=== PATIENT | female | born 1955 | race Caucasian/White ===

== ENCOUNTER 2017-02-10 00:17 | Emergency (ER) | payer OTHER ==
[~2017-02-10] VITALS: Ht 157.5 cm; Wt 81.6 kg
[~2017-02-10 00:17] MED LIST: ALLEGRA D 12 HO1 TER PO; ASPIRIN CHILDRE81 MG PO; ATORVASTATIN CA40 MG PO; BROMFED DM COU118 ML PO; CARDIZEM CD180 MG PO; CARTIA XT240 MG PO; CELEXA10 MG PO; CLOPIDOGREL75 M2 PO; FLAGYL500 M1 PO; LODRANE 24D 121 C24 PO; MEDROL 4MG. DOSE4 MG PO; NITROGLYCERIN0.4 MG SL; OMNICEF 300 MG300 MG PO; PHENERGAN VC +120 ML PO; PREDNISONE 20MG20 MG PO; TAMIFLU 75MG CA75 MG PO; TESSALON PERLE100 MG PO; TRAMADOL 50MG T50 MG PO; VENTOLIN H0.09 MG/AC IH; VIBRAMYCIN 100100 MG PO; ZITHROMAX 250M250 MG PO; ZITHROMAX Z PA250 MG PO; ZITHROMAX Z-PA250 M2 PO; ZOFRAN4 MG PO
--- NOTE | 2017-02-10 00:45 | Emergency Room Report ---
History of Present Illness Time Seen by MD Wells Presenting Problem in Triage Pt arrived:Walked Presenting Problem:REPORTS SHE WAS SEEN IN THE [facility] ON THE 2ND AND DIAGNOSED WITH AN URI. WAS GIVEN STERIODS AND ABX, BUT REPORTS SHE IS NOT BETTER, SHE IS WORSE. REPORTS COUGH, CONGESTION, SOA AT TIMES Onset of symptoms date/time:/ or onset unknown for:MEDICAL HX UNKNOWN Treatment Prior to Arrival: SEEN IN [facility] ABOUT 2 WEEKS AGO [employer] Provided by: OTHER Sepsis Risk Assessment: Temp: 98.3 B/P: 118/90 MAP: 99 Pulse: 97 Resp: 18 Recent fever? N Clinical Suspician of Infection? N Mental Status: 1 - Regular (Normal Baseline) Sepsis Risk:Low Sepsis Risk Have you (or family members/close friends) recently traveled outside the [place]? N If Yes, where/when: Have you had exposure to infectious disease within the past month? N TB? Other? Specify: Comment The patient complains of a productive cough for over a month. Initially was yellow sputum, now starting to clear. She has wheezing and trouble breathing. No fever. She does have rhinorrhea and sore throat. She was seen at the urgent treatment center on 01/27/17. Treated with a Z-Heath and a steroid shot. No follow- up since then. No history of asthma or chronic obstructive pulmonary disease. She is a smoker. ALLERGIES Coded Allergies: Penicillins (Mild, 09/11/16) Uncoded Allergies: BEE STINGS (04/07/11) Home Medications Active Scripts NITROGLYCERIN (Nitrostat) 0.4 MG SL [id number] PRN CHEST PAIN #25 TABLET Ref 1 Prov: 10/30/14 Reported Medications CITALOPRAM HYDROBROMIDE (Citalopram HBr) 10 MG PO DAILY ASPIRIN (Aspirin) 81 MG PO DAILY Fexofenadine Hcl/Pse Hcl (Grace D 12 Hour 60 Mg-120 Mg) 1 TER PO BID CLOPIDOGREL BISULFATE (Clopidogrel) 75 MG PO DAILY #90 DILTIAZEM HCL (Cartia Xt) 240 MG PO DAILY #90 Atorvastatin Calcium 40 MG PO DAILY #90 History Medical History General CAD? No Angina: No AR: Yes Hypertension? Yes Hyperlipidemia? Yes CHF? No DVT? No PE? No COPD? No Asthma? No Anemia? No GERD? No Gastric ulcers? No GI Bleed? No Hernia? No Thyroid Problems? No Hypothyroidism? No CVA? No Seizures? No Diabetes? No Renal Insuffiency? No End Stage Renal Disease? No UTI? No Stones? No BPH? No GB Disease: No Nephritic Syndrome? No Asplenia? No Hepatitis? No Sickle Cell Disease? No Arthritis? No Migraines? No Cataracts? No Glaucoma? No MRSA? No HIV? No TB? No Anxiety? No Depression? No Cancer? No Immunization Hx DT/Tetanus 1-4 Years Ago Flu NEVER Pneumonia 10-30-14 Surgical Hx Previous Surgery?Y ANGIOPLASTY CARDIAC STENT Family History Family Hx Diabetes Yes CAD Yes Hypertension No Hyperlipidemia Yes Cancer Yes TB Yes Social History Smoking Hx Smoker: Current Every Day Smoker Tobacco: Yes Type Cigarettes Packs/day 1 1/2 - 2 Packs Alcohol Alcohol: No Additionial History Additional History UTC on 01/27/17. Dx acute bronchitis. Tx with IM decadron, Zpak. Review of Systems All Other Systems Reviewed and Negative Constitutional denies fever ENT nose discharge, throat pain. Respiratory cough, shortness of breath, wheezing Physical Exam Vital Signs Vital Signs Date Time Temp Pulse Resp B/P Pulse O2 O2 Flow FiO2 Ox Delivery Rate 02/10 012 98.3 97 18 118/90 96 02/10 0125 98.3 97 18 118/90 96 02/10 0021 98.3 97 18 118/90 96 General Appearance no apparent distress Eye Exam - bilateral eye normal exam, bilateral eye PERRL, bilateral eye EOMI Ear, Nose, Throat tympanic membranes and pharynx normal Neck normal inspection, non-tender, supple, full range of motion Respiratory Status Yes: trachea midline, chest symmetrical, productive cough. No: respiratory distress. Lung Sounds bilateral: rhonchi, wheezing. Cardiovascular normal exam, regular rate/rhythm, no peripheral edema, no gallop, no JVD, no murmur, no rub, normal peripheral pulses Gastrointestinal normal bowel sounds, normal exam, non tender, soft, no organomegaly Extremities non-tender, normal range of motion, normal inspection Neurologic alert, normal exam, oriented x 3 Mental status normal mood/affect Skin intact, normal color, warm/dry Medical Decision Making LABS/Meds/Orders Pt receiving controlled substance in ED? No Results/Orders Laboratory Tests 02/10/17 0030: Lactic Acid 1.8 02/10/17 0030: Sodium 140, Potassium 3.7, Chloride 103, Carbon Dioxide 26, BUN 9, Creatinine 0.8, Estimated Creat Clear 96, Estimated GFR (MDRD) 73, Glucose 145 H, Calcium 8.9, Total Bilirubin 0.3, AST 11 L, ALT 30, Alkaline Phosphatase 213 H, Total Protein 6.9, Albumin 3.7, Globulin 3.2, Albumin/Globulin Ratio 1.2, WBC 14.9 H, RBC 5.18, Hgb 15.4, Hct 45.3, MCV 87.3, RDW 13.1, Plt Count 277, MPV 7.8, Gran % 70.7, Gran # 10.5 H, Lymphocytes % 21.7, Monocytes % 5.4, Eosinophils % 1.7, Basophils % 0.5, Lymphocytes # 3.2, Monocytes # 0.8, Eosinophils # 0.3, Basophils # 0.1, PUBS MCHC 34.0, MCH 29.6 Current Medication Orders Sig/Mario Start time Last Medication Dose Route Stop Time Status Admin Levofloxacin 0 .STK-MED ONE 02/10 010 DC .ROUTE Benzonatate 0 .STK-MED ONE 02/10 010 DC PO Benzonatate 200 MG ONCE ONE 02/10 010 DC 02/10 PO 02/10 0101 0104 Levofloxacin 500 MG ONCE ONE 02/10 010 DC 02/10 PO 02/10 0101 0105 Albuterol/Ipratropium 3 ML ONCE ONE 02/10 0045 DC 02/10 INH 02/10 0046 0043 Methylprednisolone 125 MG ONCE ONE 02/10 0045 DC 02/10 Sodium Succinate IV 02/10 0046 0043 Methylprednisolone 0 .STK-MED ONE 02/10 0039 DC Sodium Succinate .ROUTE Albuterol/Ipratropium 0 .STK-MED ONE 02/10 0038 DC INH Sodium Chloride 10 ML PRN PRN 02/10 0030 DCD IV 02/11 0026 Orders Procedure Date/time Status RT REQUEST DUONEB 02/10 004 Active CHEST(2 VIEWS-NOT PORTABLE) 02/10 0026 Active IV SALINE LOCK 02/10 26 Active CULTURE, BLOOD 02/10 26 Active LACTIC ACID 02/10 26 Complete CBC WITH AUTO DIFF 02/10 26 Complete CHEM 12 PROFILE 02/10 26 Complete XRAY/CT/US XRAY/CT/US XRAY chest Comment Chest x-ray interpreted by Antione Sandoval M.D. No infiltrate, pneumothorax, pleural effusion, or wide mediastinum. Progress - 12:55 AM: Feels better after nebulizer treatment. Departure Departure Disposition DC Home or Self Care(routine) Clinical Impression Primary Impression: Acute bronchitis Qualifiers: Bronchitis organism: unspecified organism Qualified Code: J20.9 - Acute bronchitis, unspecified Secondary Impressions: Bronchospasm Condition STABLE Referrals Bruna JURADO,Rick Birmingham (Family) Patient Instructions DI for Acute Bronchitis Additional Instructions Additional instructions for ACUTE BRONCHITIS: Use Tylenol or Ibuprofen for pain or fever. Rest and plenty of fluids. Return immediately if you have an uncontrollable fever greater than 102 degrees, severe headache or neck stiffness, difficulty breathing or shortness of breath, persistent vomiting, severe sore throat or inability to swallow. See your physician if not improving in 4-5 days. Prescriptions Current Visit Scripts Levofloxacin (Levaquin 500MG) 500 MG PO DAILY #9 TAB Benzonatate (Tessalon Perle) 100 MG PO TID #15 SGL ALBUTEROL (Proventil Hfa Inhaler) 2 PUFF IH Q4HP #1 CAN Ref 1 Methylprednisolone (Medrol Dose Heath) 4 MG PO UD #1 HEATH TAKE DIRECTED ON PACKAGING ED Critical Care Critical Care No at [id number]
[2017-02-10 00:47] LABS: HEMOGLOBIN 15.4 g/dL (12.2-16.2); LYMPH # 3.2 K/mm3 (0.7-4.5); LYMPH % 21.7 % (10-50.0)
[2017-02-10] MEDS ORDERED: PROVENTIL0.09 MG/A1 IH (01:03)
[2017-02-10] MEDS ORDERED: LEVAQUIN500 MG PO (01:03)
[2017-02-10] MEDS ORDERED: TESSALON PERLE100 M1 PO (01:03)
[2017-02-10] MEDS ORDERED: MEDROL 4MG. DOSE4 MG PO (01:03)
[2017-02-10 01:26] VITALS: BP 118/90
--- NOTE | 2017-02-10 09:11 | RADIOLOGY REPORT PS360 ---
CHEST(2 VIEWS-NOT PORTABLE) INDICATION: Cough and congestion COMPARISON: PA and lateral chest 05/01/2016 FINDINGS: The lung rodriguez are well expanded and appear clear of infiltrate. There is a tiny calcified granuloma right lower lobe The cardiomediastinal silhouette and vascularity are normal. The costophrenic angles are clear. The bony thorax is normal. IMPRESSION: Normal chest.
== END 2017-02-10 01:27 | disposition home or self-care (01) ==
LOC: ER 00:17
PROVIDERS: Emergency Medicine
DX: J20.9 Acute bronchitis, unspecified (principal); F17.210 Nicotine dependence, cigarettes, uncomplicated; I25.2 Old myocardial infarction; I10 Essential (primary) hypertension; E78.5 Hyperlipidemia, unspecified; Z95.5 Presence of coronary angioplasty implant and graft; Z79.02 Long term (current) use of antithrombotics/antiplatelets; Z79.82 Long term (current) use of aspirin; Z79.899 Other long term (current) drug therapy

== ENCOUNTER → 2017-02-28 | Outpatient (CLI) | payer OTHER ==
[~2017-02-28] MED LIST changes: +LEVAQUIN500 MG PO; +PROVENTIL0.09 MG/A1 IH; +TESSALON PERLE100 M1 PO
--- NOTE | 2017-02-28 15:22 | RADIOLOGY REPORT PS360 ---
CHEST(2 VIEWS-NOT PORTABLE) COMPARISON: PA and lateral chest 02/10/2017 HISTORY: Cough TECHNIQUE: The a and lateral chest FINDINGS: The lung rodriguez are well expanded and appear clear of infiltrate. The cardiac silhouette and vascularity are normal and is no pleural fluid. There is a partially calcified granuloma right lower lobe IMPRESSION: Essentially negative chest
--- NOTE | 2017-03-05 15:13 | RADIOLOGY REPORT PS360 ---
DIG MAMM-SCREEN OJ W/CAD CAD Screening COMPARISON: Digital mammograms 12/02/2014 INDICATION: There is a history of breast cancer in patient's mother diagnosed after menopause. TECHNIQUE: Standard CC and MLO images were obtained. R2 CAD reviewed. FINDINGS: The breasts are closed primarily of fat with minimal scattered fibroglandular densities in each breast. There is a small density with smooth borders just beneath the surface of the skin inner quadrant left breast at the cleavage area. This measures 1.3 cm in diameter. In view of the superficial location this likely is a sebaceous cyst. There is a benign-appearing calcification right breast. There is no suspicious lesion and no suspicious microcalcifications. IMPRESSION: Fibrofatty parenchyma with small superficial asymmetric density left breast, recommend the patient have an ultrasound left breast for better evaluation to confirm suspected benign etiology of this lesion BI-RADS CATEGORY: 0_Incomplete: Need additional imaging RECOMMENDED FOLLOWUP: USB ULTRASOUND-BREAST (A letter has been sent to the patient regarding results of the study.)
== END ==
LOC: RAD 08:00
DX: Z12.31 Encounter for screening mammogram for malignant neoplasm of breast (principal); R05 Cough
CPT/HCPCS: G0202

== ENCOUNTER → 2017-03-15 | Outpatient (CLI) | payer OTHER ==
--- NOTE | 2017-03-16 12:36 | RADIOLOGY REPORT PS360 ---
US BREAST-LT COMPLETE W/AXILLA COMPARISON: Mammogram of 02/28/2017 INDICATION: Abnormal mammogram ORDERING PHYSICIAN: SRIRAM PAUL PATIENT AGE: 61 years TECHNIQUE: Standard images FINDINGS: There is a 13 x 10 x 7 mm mixed echogenic lesion in the subcutaneous area of the left breast at 9:00 corresponding to the mammographic abnormality likely related to sebaceous cyst. There is enhanced through transmission of sound. No other abnormalities detected. IMPRESSION: Probable sebaceous cyst left breast BI-RADS CATEGORY: 2_Benign RECOMMENDED FOLLOWUP: Correlation with physical exam. Certainly if the lesion increases in size then ultrasound-guided aspiration could be performed. Recommend routine screening mammogram as well (A letter has been sent to the patient regarding results of the study.)
== END ==
LOC: RAD 12:45
DX: R92.8 Other abnormal and inconclusive findings on diagnostic imaging of breast (principal)

== ENCOUNTER → 2017-05-08 | Outpatient (CLI) | payer OTHER ==
[~2017-05-08] MED LIST changes: +FLONASE 50 MCG16 GM
[2017-05-08 14:07] LABS: BILIRUBIN, INDIRECT 0.04 mg/dL (0-0.9)
--- NOTE | 2017-05-08 21:12 | RADIOLOGY REPORT PS360 ---
PROCEDURE: 2-D M-mode and color Doppler study INDICATIONS FOR THE TEST: Chest pain COPD Heart Murmur Tobacco SmokingX Palpitations Fatigue Syncope Edema HypertensionXDiabetes Mellitus Rheumatic Fever SOB ORTEGA Obesity HyperlipidemiaX Family History HD Additional History CAD,ABN EKG PATIENT INFORMATION HEIGHT: 63 WEIGHT:185 GENDER: Female B/P:142/88 2-D/M-MODE INTERPRETATION: 2-D MEASUREMENTS OBSERVED VALUES IN CMS Right Ventricular Dimension (RVDd) 2.2 Interventricular Septum (Thickness)(IVsd) 1.0 Left Ventricular Internal Dimensions(LVIDd) 5.7 Left Ventricular Posterior Wall (Thickness)(LVPWd) .9 Aortic Root 3.4 Aortic Cusp Separation 1.7 Left Atrial Dimensions (LAD) 2.0 2D 1. Left atrium is qualitatively mildly enlarged, left ventricle is normal size, there is mild qualitative concentric left ventricular hypertrophy, visually estimated ejection fraction 55% with no obvious regional wall motion abnormality. 2. The right atrium and right ventricle are relatively normal size and function. 3. The aortic valve is minimally thickened and fibrosed. 4. The mitral and tricuspid valve leaflets are grossly normal. 5. The pulmonic valve is poorly visualized. 6. No significant pericardial effusion noted. DOPPLER INTERROGATION: Doppler interrogation of the aortic, mitral and tricuspid valvular reveals presence of mild mitral and tricuspid regurgitation, tricuspid regurgitant jet velocity is insufficient for calculation of the right ventricular systolic pressure, grade 1 diastolic dysfunction seen without tissue Doppler evidence of raised left atrial pressure. CONCLUSION: 1. Mildly left atrium, normal left ventricular size, there is mild qualitative concentric left ventricular hypertrophy present, visually estimated ejection fraction 55% with no obvious regional wall motion abnormality, grade 1 diastolic dysfunction seen without tissue Doppler evidence of raised left atrial pressure. 2. Mild mitral and tricuspid regurgitation. 3. No significant pericardial effusion noted.
== END ==
LOC: RT 12:25
PROVIDERS: Internal Medicine
DX: I25.10 Atherosclerotic heart disease of native coronary artery without angina pectoris (principal); I10 Essential (primary) hypertension; E78.5 Hyperlipidemia, unspecified; R94.31 Abnormal electrocardiogram [ECG] [EKG]; Z95.5 Presence of coronary angioplasty implant and graft; Z72.0 Tobacco use